=== PATIENT | female | born 1965 | race Two or more races ===

== ENCOUNTER 2023-05-02 00:06 | Emergency (ER) | payer OTHER ==
[~2023-05-02] VITALS: Ht 157.5 cm; Wt 61.4 kg
[~2023-05-02 00:06] MED LIST: ACET-2119 PO; ALBU18HF2 INH; FLUT1BLS3 INH; GABA300C PO; IBUP-860 PO; LEVE10002 PO
[2023-05-02 00:18] VITALS: TEMP 97.5
[2023-05-02 00:54] LABS: BASOPHILS % (AUTO) 0.7 % (0-1); EOSINOPHILS # (AUTO) 0.1 X10'3 (0-0.9); EOSINOPHILS % (AUTO) 2.3 % (0-6); HEMATOCRIT 33.8 % (35.0-45.0); HEMOGLOBIN 10.9 g/dl (12.0-16.0); LYMPHOCYTES # (AUTO) 2.1 X10'3 (1.1-4.8); LYMPHOCYTES % (AUTO) 55.4 % (21-51); MEAN CORPUSCULAR HEMOGLOBIN 27.3 PG (27.0-31.0); MEAN CORPUSCULAR HGB CONC 32.1 g/dL (33.0-36.5); MEAN PLATELET VOLUME 7.8 FL (7.4-10.4); MONOCYTES # (AUTO) 0.3 X10'3 (0-0.9); MONOCYTES % (AUTO) 8.8 % (2-12); NEUTROPHILS # (AUTO) 1.2 X10'3 (1.8-7.7); NEUTROPHILS % (AUTO) 32.8 % (42-75); PLATELET COUNT 194 X10'3 (140-440); RED BLOOD COUNT 3.98 X10'6 (4.20-5.60); RED CELL DISTRIBUTION WIDTH 19.4 % (11.5-14.5); WHITE BLOOD COUNT 3.7 X10'3 (4.5-11.0)
[2023-05-02 01:03] LABS: D-DIMER 1.99 MG/L FEU (0-0.50)
[2023-05-02 01:28] LABS: ALANINE AMINOTRANSFERASE 33 U/L (12-78); ALBUMIN 3.7 G/DL (3.4-5.0); ALBUMIN/GLOBULIN RATIO 0.8 (1.1-1.5); ALKALINE PHOSPHATASE 71 IU/L (46-116); ANION GAP 19 (8-16); ASPARTATE AMINO TRANSFERASE 43 U/L (10-37); BILIRUBIN,TOTAL 0.7 MG/DL (0.1-1.0); BLOOD UREA NITROGEN 15 MG/DL (7-18); CALCIUM 8.5 MG/DL (8.5-10.1); CHLORIDE 99 MMOL/L (99-107); CREATININE 0.79 MG/DL (0.40-0.90); GLUCOSE 99 MG/DL (70-104); POTASSIUM 3.6 MMOL/L (3.5-5.1); SODIUM 140 MMOL/L (135-145); TOTAL CARBON DIOXIDE 21.8 MMOL/L (24-32); TOTAL PROTEIN 8.5 G/DL (6.4-8.2); eGFR 74 ML/MIN
[2023-05-02] MEDS ORDERED: nitroGLYCERIN 0.4mg SUBLingual tab SL PRN (01:30)
[2023-05-02] MEDS ORDERED: aspirin 81mg tab.chew PO ONE (01:30)
[2023-05-02] MEDS ORDERED: metoprolol tartrate 50mg tablet PO ONE (01:30)
[2023-05-02 01:35] LABS: ANISOCYTOSIS 2+; PLATELET ESTIMATE NORMAL; TOTAL CELLS COUNTED 100
[2023-05-02 01:36] LABS: ELLIPTOCYTES FEW
[2023-05-02] MEDS ORDERED: normal saline 1000ML IV soln IVB ONE (02:00)
[2023-05-02] MEDS ORDERED: thiamine 100mg/ml 2ml inj. IV ONE (02:05)
[2023-05-02] MEDS ORDERED: ondansetron/PF 4mg/2ml inj IV ONE (02:05)
[2023-05-02 02:17] LABS: ETHANOL 0.163 GM/DL (0.0-0.010); LIPASE < 50 U/L (73-393)
[2023-05-02] MEDS ORDERED: iohexol 350MG/ML 100ml bottle IV ONE (02:29)
[2023-05-02] MEDS ORDERED: LORazepam 2 mg/ml vial IV ONE (05:00)
[2023-05-02 07:29] LABS: ALBUMIN 3.2 G/DL (3.4-5.0); ANION GAP 15 (8-16); BLOOD UREA NITROGEN 13 MG/DL (7-18); CALCIUM 7.6 MG/DL (8.5-10.1); CHLORIDE 101 MMOL/L (99-107); CREATININE 0.52 MG/DL (0.40-0.90); GLUCOSE 77 MG/DL (70-104); SODIUM 138 MMOL/L (135-145); TOTAL CARBON DIOXIDE 21.9 MMOL/L (24-32); eGFR > 90 ML/MIN
[2023-05-02 07:33] VITALS: BP 137/84; PULSE 93; RESP 14; O2SAT 99
[2023-05-02] MEDS ORDERED: LIDO700A47 TOP (17:16)
== END 2023-05-02 09:13 | disposition home or self-care (01) ==
LOC: ER 00:07
DX: R07.89 Other chest pain (principal); K29.20 Alcoholic gastritis without bleeding; G40.909 Epilepsy, unspecified, not intractable, without status epilepticus; G89.29 Other chronic pain; F10.129 Alcohol abuse with intoxication, unspecified; Z56.0 Unemployment, unspecified; Z59.00 Homelessness unspecified; Z72.89 Other problems related to lifestyle; Y90.6 Blood alcohol level of 120-199 mg/100 ml; Z79.899 Other long term (current) drug therapy
CPT/HCPCS: 36415; 71045; 71275; 80048; 80053; 80320; 83690; 83880; 84484; 85007; 85025; 85379; 93005; 96361; 96374; 96375; 99285; J2060; J2405; J3411; J3490; J7030; Q9967; 96365

== ENCOUNTER 2023-05-02 10:59 | Emergency (ER) | payer OTHER ==
[~2023-05-02] VITALS: Ht 162.6 cm; Wt 58.0 kg
[2023-05-02 11:15] VITALS: TEMP 97.7
[2023-05-02] MEDS ORDERED: ketorolac tromethamine 15mg/ml inj. IM ONE (14:50)
[2023-05-02 14:54] VITALS: BP 129/65; PULSE 74; RESP 14; O2SAT 99
[2023-05-02] MEDS ORDERED: LIDO700A47 TOP (17:16)
== END 2023-05-02 16:02 | disposition home or self-care (01) ==
LOC: ER 10:59
DX: S39.012A Strain of muscle, fascia and tendon of lower back, initial encounter (principal); R51.9 Headache, unspecified; G89.29 Other chronic pain; F17.200 Nicotine dependence, unspecified, uncomplicated; Z59.00 Homelessness unspecified; Z56.0 Unemployment, unspecified; Z72.89 Other problems related to lifestyle; Z79.899 Other long term (current) drug therapy; X58.XXXA Exposure to other specified factors, initial encounter; Y93.89 Activity, other specified; Y92.89 Other specified places as the place of occurrence of the external cause; Y99.8 Other external cause status
CPT/HCPCS: 72100; 96372; 99283; J1885

== ENCOUNTER 2023-05-02 17:08 | Emergency (ER) | payer OTHER ==
[~2023-05-02] VITALS: Ht 165.1 cm; Wt 74.0 kg
[2023-05-02] MEDS ORDERED: LIDO700A47 TOP (17:16)
[2023-05-02 17:20] VITALS: BP 137/79; PULSE 91; RESP 16; TEMP 98.1; O2SAT 99
== END 2023-05-02 17:22 | disposition home or self-care (01) ==
LOC: ER 17:09
DX: M54.9 Dorsalgia, unspecified (principal); G89.29 Other chronic pain; Z56.0 Unemployment, unspecified; Z59.00 Homelessness unspecified; Z72.89 Other problems related to lifestyle; Z79.899 Other long term (current) drug therapy
CPT/HCPCS: 99282; 99283

== ENCOUNTER 2023-05-07 14:42 | Emergency (ER) | payer OTHER ==
[~2023-05-07] VITALS: Ht 157.5 cm; Wt 61.4 kg
[~2023-05-07 14:42] MED LIST changes: +LIDO700A47 TOP
[2023-05-07 16:01] LABS: BASOPHILS % (AUTO) 0.8 % (0-1); EOSINOPHILS # (AUTO) 0.1 X10'3 (0-0.9); EOSINOPHILS % (AUTO) 3.6 % (0-6); HEMATOCRIT 34.8 % (35.0-45.0); HEMOGLOBIN 11.2 g/dl (12.0-16.0); LYMPHOCYTES # (AUTO) 1.4 X10'3 (1.1-4.8); LYMPHOCYTES % (AUTO) 62.2 % (21-51); MEAN CORPUSCULAR HEMOGLOBIN 27.3 PG (27.0-31.0); MEAN CORPUSCULAR VOLUME 85.2 FL (78-98); MONOCYTES # (AUTO) 0.4 X10'3 (0-0.9); MONOCYTES % (AUTO) 18.2 % (2-12); NEUTROPHILS # (AUTO) 0.3 X10'3 (1.8-7.7); NEUTROPHILS % (AUTO) 15.2 % (42-75); PLATELET COUNT 116 X10'3 (140-440); RED BLOOD COUNT 4.09 X10'6 (4.20-5.60); RED CELL DISTRIBUTION WIDTH 20.1 % (11.5-14.5); WHITE BLOOD COUNT 2.2 X10'3 (4.5-11.0)
[2023-05-07 16:23] LABS: ALANINE AMINOTRANSFERASE 39 U/L (12-78); ALBUMIN 3.5 G/DL (3.4-5.0); ALBUMIN/GLOBULIN RATIO 0.8 (1.1-1.5); ALKALINE PHOSPHATASE 67 IU/L (46-116); ANION GAP 16 (8-16); ASPARTATE AMINO TRANSFERASE 61 U/L (10-37); BILIRUBIN,TOTAL 0.6 MG/DL (0.1-1.0); BLOOD UREA NITROGEN 19 MG/DL (7-18); BUN/CREATININE RATIO 24.7 (10.0-20.0); CALCIUM 8.7 MG/DL (8.5-10.1); CHLORIDE 96 MMOL/L (99-107); CREATININE 0.77 MG/DL (0.40-0.90); GLUCOSE 87 MG/DL (70-104); SODIUM 135 MMOL/L (135-145); TOTAL CARBON DIOXIDE 22.9 MMOL/L (24-32); TOTAL PROTEIN 8.1 G/DL (6.4-8.2); eGFR 77 ML/MIN
[2023-05-07 16:24] LABS: POTASSIUM 2.6 MMOL/L (3.5-5.1)
--- NOTE | 2023-05-07 16:35 | NUR ---
PT K 2.6. RN NOTIFIED DR ELKINS.
[2023-05-07] MEDS ORDERED: potassium Cl 40MEQ/1/2NS 520ml 520 ML IV ONE (16:40)
[2023-05-07] MEDS ORDERED: POTASSIUM BICARB 20meq eff tab 20 MEQ TABLET.EFF PO ONE (16:40)
[2023-05-07] MEDS ORDERED: mag hydrox/Alum hydrox/simeth 30ml oral suspension PO ONE (16:50)
[2023-05-07] MEDS ORDERED: LIDOcaine Viscous 15ml cup MM ONE (16:50)
[2023-05-07] MEDS ORDERED: sucralfate 1 gm tablet PO ONE (16:50)
--- NOTE | 2023-05-07 17:17 | NUR ---
PT IV SWELLING AND PAINFUL. RN WILL D/C AND START NEW IV.
[2023-05-07 17:28] LABS: TOTAL CELLS COUNTED 100
[2023-05-07 17:30] LABS: PLATELET ESTIMATE DECREASED
[2023-05-07 17:32] LABS: ANISOCYTOSIS 3+; POIKILOCYTOSIS 1+
--- NOTE | 2023-05-07 17:42 | NUR ---
NEW IV OBTAINED RAC AND FLUIDS RESTARTED.
[2023-05-07 21:50] VITALS: BP 123/74; PULSE 96; RESP 18; TEMP 98.2; O2SAT 96
--- NOTE | 2023-05-07 21:50 | NUR ---
IV DC'D PT BEING DISCHARGED DRESSING APPLIED
== END 2023-05-07 21:54 | disposition home or self-care (01) ==
LOC: ER 14:42
DX: F10.129 Alcohol abuse with intoxication, unspecified (principal); E87.6 Hypokalemia; D61.818 Other pancytopenia; R07.89 Other chest pain; Z79.1 Long term (current) use of non-steroidal anti-inflammatories (NSAID); Z79.899 Other long term (current) drug therapy; Z59.00 Homelessness unspecified; Z56.0 Unemployment, unspecified; Y90.9 Presence of alcohol in blood, level not specified
CPT/HCPCS: 36415; 80053; 83880; 84484; 85007; 85025; 93005; 96365; 96366; 99285; J3480; J7030

== ENCOUNTER 2023-05-14 18:49 | Emergency (ER) | payer OTHER ==
[~2023-05-14] VITALS: Ht 157.5 cm; Wt 54.5 kg
[2023-05-14 19:02] LABS: EOSINOPHILS # (AUTO) 0.1 X10'3 (0-0.9); EOSINOPHILS % (AUTO) 1.5 % (0-6); HEMATOCRIT 36.4 % (35.0-45.0); HEMOGLOBIN 11.7 g/dl (12.0-16.0); LYMPHOCYTES % (AUTO) 48.1 % (21-51); MEAN CORPUSCULAR HEMOGLOBIN 27.1 PG (27.0-31.0); MEAN CORPUSCULAR HGB CONC 32.1 g/dL (33.0-36.5); MEAN CORPUSCULAR VOLUME 84.6 FL (78-98); MEAN PLATELET VOLUME 8.1 FL (7.4-10.4); MONOCYTES # (AUTO) 0.7 X10'3 (0-0.9); MONOCYTES % (AUTO) 16.8 % (2-12); NEUTROPHILS # (AUTO) 1.4 X10'3 (1.8-7.7); NEUTROPHILS % (AUTO) 32.6 % (42-75); PLATELET COUNT 182 X10'3 (140-440); RED CELL DISTRIBUTION WIDTH 20.6 % (11.5-14.5); WHITE BLOOD COUNT 4.2 X10'3 (4.5-11.0)
[2023-05-14 19:14] VITALS: TEMP 98.8
[2023-05-14 19:24] LABS: ALANINE AMINOTRANSFERASE 55 U/L (12-78); ALBUMIN 3.9 G/DL (3.4-5.0); ALBUMIN/GLOBULIN RATIO 0.8 (1.1-1.5); ALKALINE PHOSPHATASE 70 IU/L (46-116); ANION GAP 15 (8-16); ASPARTATE AMINO TRANSFERASE 81 U/L (10-37); BILIRUBIN,TOTAL 1.1 MG/DL (0.1-1.0); BLOOD UREA NITROGEN 21 MG/DL (7-18); BUN/CREATININE RATIO 22.3 (10.0-20.0); CALCIUM 8.7 MG/DL (8.5-10.1); CHLORIDE 96 MMOL/L (99-107); CREATININE 0.94 MG/DL (0.40-0.90); GLUCOSE 131 MG/DL (70-104); SODIUM 136 MMOL/L (135-145); TOTAL CARBON DIOXIDE 24.8 MMOL/L (24-32); TOTAL PROTEIN 8.9 G/DL (6.4-8.2); eGFR 61 ML/MIN
[2023-05-14 19:34] LABS: ANISOCYTOSIS 3+; PLATELET ESTIMATE NORMAL; TOTAL CELLS COUNTED 100
[2023-05-14 19:36] LABS: POIKILOCYTOSIS 1+; POLYCHROMASIA FEW
[2023-05-14] MEDS ORDERED: potassium Cl 20 mEq SR tablet PO STA ×2 (19:36→21:48)
[2023-05-14 19:47] LABS: MAGNESIUM 1.4 MG/DL (1.5-2.4)
[2023-05-14 20:15] VITALS: BP 124/72; PULSE 96; RESP 14; O2SAT 98
[2023-05-14] MEDS ORDERED: acetaminophen 325mg tablet PO ONE (21:50)
[2023-05-14] MEDS ORDERED: magnesium oxide 400mg tablet PO ONE (21:50)
[2023-05-14 21:57] LABS: ETHANOL 14 MG/DL (<10)
== END 2023-05-14 22:06 | disposition home or self-care (01) ==
LOC: ER 18:50
DX: R07.9 Chest pain, unspecified (principal); E87.6 Hypokalemia; K29.20 Alcoholic gastritis without bleeding; F10.929 Alcohol use, unspecified with intoxication, unspecified; G89.29 Other chronic pain; M54.9 Dorsalgia, unspecified; F17.200 Nicotine dependence, unspecified, uncomplicated; Z59.00 Homelessness unspecified; Z56.0 Unemployment, unspecified; Z79.899 Other long term (current) drug therapy; Z79.1 Long term (current) use of non-steroidal anti-inflammatories (NSAID); Z79.2 Long term (current) use of antibiotics
CPT/HCPCS: 36415; 71045; 80053; 80320; 83735; 83880; 84484; 85007; 85025; 93005; 99285

== ENCOUNTER 2023-05-15 01:33 | Emergency (ER) | payer OTHER ==
[~2023-05-15] VITALS: Ht 157.5 cm; Wt 54.5 kg
[2023-05-15] MEDS ORDERED: potassium Cl 20 mEq SR tablet PO ONE (01:45)
[2023-05-15] MEDS ORDERED: magnesium oxide 400mg tablet PO ONE (01:45)
[2023-05-15 02:09] VITALS: TEMP 98.1
[2023-05-15] MEDS ORDERED: ibuprofen 200mg tablet PO ONE (03:50)
[2023-05-15 04:17] VITALS: BP 113/90; PULSE 99; RESP 16; O2SAT 99
== END 2023-05-15 04:18 | disposition home or self-care (01) ==
LOC: ER 01:33
DX: M25.559 Pain in unspecified hip (principal); G89.29 Other chronic pain; Z79.1 Long term (current) use of non-steroidal anti-inflammatories (NSAID); Z79.899 Other long term (current) drug therapy; Z59.00 Homelessness unspecified; Z56.0 Unemployment, unspecified
CPT/HCPCS: 93005; 99284